=== PATIENT | female | born 1990 | race African-American/Black ===

== ENCOUNTER 2016-04-05 22:51 | Emergency (ER) | payer MEDICAID ==
[~2016-04-05] VITALS: Ht 167.6 cm; Wt 107.0 kg
[~2016-04-05 22:51] MED LIST: IBUPROFEN600 MG ORAL; NORCO 5-325 TA1 EACH ORAL; ROBAXIN-750750 MG PO
[2016-04-05] MEDS ORDERED: CARDIZEM60 MG ORAL (23:05)
[2016-04-05] MEDS ORDERED: LOSARTAN POTASS50 MG ORAL (23:05)
[2016-04-05] MEDS ORDERED: HYDROCHLOROTH12.5 M2 ORAL (23:05)
[2016-04-05 23:21] VITALS: BP 142/89
[2016-04-05] MEDS ORDERED: ZOFRAN4 M3 ORAL (23:33)
--- NOTE | 2016-04-05 23:34 | Emergency Room Report ---
History of Present Illness General Chief Complaint: Chest Pain Source: Patient Present Illness HPI Is a 25-year-old female with no past medical history. She presents with chief complaint of chest pressure and pain. She felt very gassy today. Better after she burped. She had one episode vomiting when she checked in today. Denies any diarrhea but has the urge to go. No fever chills but no diaphoresis. No exertional component. No other complaint. Allergies: Coded Allergies: No Known Allergies (Unverified , 12/04/15) Patient History Past Medical History: see triage record, old chart reviewed Past Surgical History: none Pertinent Family History: none Social History: Denies: smoking Last Menstrual Period: 03/18/16 Now: No Immunizations: other Reviewed Nursing Documentation: PMH: Agreed, PSxH: Agreed Nursing Documentation-PMH Past Medical History: No History, Except For Hx Hypertension: Yes Review of Systems Eye: Denies: blurred vision, eye pain ENT: Denies: ear pain, nose congestion, throat swelling Respiratory: Denies: cough, shortness of breath Cardiovascular: Denies: chest pain, palpitations Gastrointestinal: Reports: nausea, Denies: abdominal pain, diarrhea, vomiting Musculoskeletal: Denies: back pain, joint pain Skin: Denies: rash Neurological: Denies: headache, numbness Endocrine: Denies: increased thirst, increased urine Hematologic/Lymphatic: Denies: easy bruising All Other Systems: negative except mentioned in HPI Physical Exam Vital Signs Date Time Temp Pulse Resp B/P Pulse Ox O2 Delivery O2 Flow Rate FiO2 04/05/16 22:59 98.1 96 16 148/84 98 Room Air vitals normal Sp02 EP Interpretation: reviewed, normal General Appearance: well appearing, no apparent distress, alert Head: normocephalic, atraumatic Eyes: bilateral eye EOMI, bilateral eye PERRL ENT: hearing grossly normal, normal pharynx Neck: full range of motion, supple, no meningismus Respiratory: chest non-tender, lungs clear, normal breath sounds Cardiovascular #1: regular rate, rhythm, no murmur Gastrointestinal: non tender, no mass, no organomegaly, no bruit, non-distended , abnormal bowel sounds - Hyperactive Musculoskeletal: back normal, gait/station normal, normal range of motion Psychiatric: mood/affect normal Skin: warm/dry Medical Decision Making Diagnostic Impression: Primary Impression: Non-cardiac chest pain Additional Impression: Abdominal gas pain ER Course Patient presents with noncardiac chest pain. No evidence of obstruction. Notice of acute abdomen. Most likely secondary to early gastroenteritis. We' ll discharge him with reassurance. EKG Diagnostic Results Rate: normal Rhythm: NSR ST Segments: no acute changes Rhythm Strip Diag. Results EP Interpretation: yes Rate: 90 Rhythm: NSR, no PVC's, no ectopy Last Vital Signs Date Time Temp Pulse Resp B/P Pulse Ox O2 Delivery O2 Flow Rate FiO2 04/05/16 23:21 98.1 88 16 142/89 100 Room Air Status: improved Disposition: HOME, SELF-CARE Condition: Stable Scripts Ondansetron* (ZOFRAN*) 4 Mg Tablet 4 MG ORAL Q6H Y for Nausea & Vomiting, #10 TAB Prov: KEIRA BRIONES M.D. 04/05/16 Patient Instructions: Nonspecific Chest Pain Additional Instructions: Followup with your Dr. in 3-5 days. Return if symptom worsen. KEIRA BRIONES M.D. Apr 05, 2016 23:34
[2016-04-05 23:50] VITALS: BP 142/89
--- NOTE | 2016-04-08 10:07 | Cardiology Report ---
APPROVED REPORT EKG Measurement Heart [id number] Normal sinus rhythm Normal ECG
== END 2016-04-06 00:10 | disposition home or self-care (01) ==
LOC: EMR 23:25
DX: R07.89 Other chest pain (principal); R10.9 Unspecified abdominal pain; I10 Essential (primary) hypertension; R11.10 Vomiting, unspecified
CPT/HCPCS: 93005; 99283

== ENCOUNTER 2017-03-24 12:59 | Emergency (ER) | payer MEDICAID ==
[~2017-03-24] VITALS: Ht 167.6 cm; Wt 104.3 kg
[~2017-03-24 12:59] MED LIST changes: +CARDIZEM60 MG ORAL; +HYDROCHLOROTH12.5 M2 ORAL; +LOSARTAN POTASS50 MG ORAL; +ZOFRAN4 M3 ORAL
[2017-03-24] MEDS ORDERED: Ketorolac 30mg Inj IV ONE (13:30)
[2017-03-24 14:00] LABS: APPEARANCE,URINE CLOUDY; BASOPHILS % (AUTO) 1.4 % (0.0-2.0); BILIRUBIN, URINE NEGATIVE (NEGATIVE); COLOR,URINE PALE YELLOW; EOSINOPHILS % (AUTO) 1.7 % (0.0-3.0); GLUCOSE, URINE (UA) NEGATIVE (NEGATIVE); HEMATOCRIT 42.5 % (37.0-47.0); KETONES,URINE NEGATIVE (NEGATIVE); LEUKOCYTE ESTERASE ,URINE NEGATIVE (NEGATIVE); LYMPHOCYTES % (AUTO) 31.2 % (20.0-45.0); MEAN CORPUSCULAR VOLUME 89 FL (80-99); NEUTROPHILS % (AUTO) 58.7 % (45.0-75.0); NITRITE,URINE NEGATIVE (NEGATIVE); PH,URINE 6 (4.5-8.0); PLATELET COUNT 321 K/UL (150-450); PROTEIN,URINE 2+ (NEGATIVE); RED BLOOD COUNT 4.76 M/UL (4.20-5.40); RED CELL DISTRIBUTION WIDTH 13.1 % (11.6-14.8); UROBILINOGEN,URINE NORMAL MG/DL (0.0-1.0)
[2017-03-24 14:10] LABS: INR 0.9 (0.9-1.1)
[2017-03-24 14:14] LABS: ANION GAP 7 mmol/L (5-15); BLOOD UREA NITROGEN 6 mg/dL (7-18); CALCIUM 9.1 MG/DL (8.5-10.1); CARBON DIOXIDE 27 MMOL/L (21-32); CHLORIDE 105 MMOL/L (98-107); CREATININE 1.1 MG/DL (0.55-1.30); POTASSIUM 3.7 MMOL/L (3.5-5.1); SODIUM 139 MMOL/L (136-145)
[2017-03-24 14:18] LABS: ALANINE AMINOTRANSFERASE 42 U/L (12-78); ALBUMIN 3.4 G/DL (3.4-5.0); ALBUMIN/GLOBULIN RATIO 0.9 (1.0-2.7); ALKALINE PHOSPHATASE 56 U/L (46-116); ASPARTATE AMINO TRANSFERASE 27 U/L (15-37); BILIRUBIN,TOTAL 0.3 MG/DL (0.2-1.0)
--- NOTE | 2017-03-24 14:52 | Emergency Room Report ---
History of Present Illness General Chief Complaint: Complications Source: Patient Present Illness HPI The patient had an abortifacient on Friday. She passed tissue on . He's continued to have bleeding going to double pads every couple of hours. In addition to that she has significant pain in her abdomen. She doesn't feel dizzy when she stands up. She's not sure what her blood type is. She has an 8- year-old child. LNMP 01/20. She's felt feverish but no documented fever. No chills. No dysuria. The pain is suprapubic and crampy pressure. Pain rated 10/10. 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 Last Menstrual Period: 01/20/17 Reviewed Nursing Documentation: PMH: Agreed, PSxH: Agreed Nursing Documentation-PMH Hx Hypertension: Yes - Renal Hypertension Hx Dialysis: No - CKD Review of Systems All Other Systems: negative except mentioned in HPI Physical Exam Vital Signs Date Time Temp Pulse Resp B/P (MAP) Pulse Ox O2 Delivery O2 Flow Rate FiO2 03/24/17 13:06 98.4 0 16 97 Room Air Sp02 EP Interpretation: reviewed, normal General Appearance: well appearing, no apparent distress, GCS 15 Head: normocephalic Eyes: bilateral eye normal inspection, bilateral eye PERRL ENT: moist mucus membranes Neck: supple Respiratory: lungs clear, normal breath sounds Cardiovascular #1: regular rate, rhythm Cardiovascular #2: 2+ radial (R) Gastrointestinal: normal inspection, normal bowel sounds, no mass, non- distended, tenderness Genitourinary: no CVA tenderness, deferred - for ultrasound Musculoskeletal: back normal, gait/station normal, normal range of motion Neurologic: alert, oriented x3, grossly normal Psychiatric: mood/affect normal Skin: normal inspection, warm/dry Medical Decision Making Diagnostic Impression: Primary Impression: Vaginal bleeding Additional Impression: Retained products of conception ER Course Patient presents with suprapubic pain and vaginal bleeding after passing tissue. Differential includes ectopic, retained products, infection, post miscarriage pain. Evaluation would be with labs, including a type and Rh and urinalysis. Also an ultrasound will be performed. The patient will receive IV hydration and analgesia. Blood type O+. H/H good. WBC normal. Discussed with Dr. Graves who recommends repeat dosing of [employer]. States small possibility she will need D and C but believe repeat dose might be successful. Discussed options with patient. No evidence of infection at this time. Improved pain - abd soft. Here 1 pad/hour, minimal clots on U/S probe Patient stable for outpatient observation and treatment. Laboratory Tests Test 03/24/17 13:40 White Blood Count 6.0 K/UL (4.8-10.8) Red Blood Count 4.76 M/UL (4.20-5.40) Hemoglobin 14.0 G/DL (12.0-16.0) Hematocrit 42.5 % (37.0-47.0) Mean Corpuscular Volume 89 FL (80-99) Mean Corpuscular Hemoglobin 29.4 PG (27.0-31.0) Mean Corpuscular Hemoglobin Concent 33.0 G/DL (32.0-36.0) Red Cell Distribution Width 13.1 % (11.6-14.8) Platelet Count 321 K/UL (150-450) Mean Platelet Volume 6.4 FL (6.5-10.1) L Neutrophils (%) (Auto) 58.7 % (45.0-75.0) Lymphocytes (%) (Auto) 31.2 % (20.0-45.0) Monocytes (%) (Auto) 7.0 % (1.0-10.0) Eosinophils (%) (Auto) 1.7 % (0.0-3.0) Basophils (%) (Auto) 1.4 % (0.0-2.0) Prothrombin Time 9.4 SEC (9.30-11.50) Prothrombin Time INR 0.9 (0.9-1.1) PTT 27 SEC (23-33) Urine Color Pale yellow Urine Appearance Cloudy Urine pH 6 (4.5-8.0) Urine Specific [place] 1.020 (1.005-1.035) Urine Protein 2+ (NEGATIVE) H Urine Glucose (UA) Negative (NEGATIVE) Urine Ketones Negative (NEGATIVE) Urine Occult Blood 5+ (NEGATIVE) H Urine Nitrite Negative (NEGATIVE) Urine Bilirubin Negative (NEGATIVE) Urine Urobilinogen Normal MG/DL (0.0-1.0) Urine Leukocyte Esterase Negative (NEGATIVE) Urine RBC 60-80 /HPF (0 - 2) H Urine WBC 0-2 /HPF (0 - 2) Urine Squamous Epithelial Cells Few /LPF (NONE/OCC) Urine Bacteria Occasional /HPF (NONE) Sodium Level 139 MMOL/L (136-145) Potassium Level 3.7 MMOL/L (3.5-5.1) Chloride Level 105 MMOL/L (98-107) Carbon Dioxide Level 27 MMOL/L (21-32) Anion Gap 7 mmol/L (5-15) Blood Urea Nitrogen 6 mg/dL (7-18) L Creatinine 1.1 MG/DL (0.55-1.30) Estimate Glomerular Filtration Rate > 60 mL/min (>60) Glucose Level 91 MG/DL (74-106) Calcium Level 9.1 MG/DL (8.5-10.1) Total Bilirubin 0.3 MG/DL (0.2-1.0) Aspartate Amino Transferase (AST) 27 U/L (15-37) Alanine Aminotransferase (ALT) 42 U/L (12-78) Alkaline Phosphatase 56 U/L (46-116) Total Protein 7.2 G/DL (6.4-8.2) Albumin 3.4 G/DL (3.4-5.0) Globulin 3.8 g/dL Albumin/Globulin Ratio 0.9 (1.0-2.7) L Lipase 112 U/L (73-393) Human Chorionic Gonadotropin, Quant 4177 mIU/mL (1-6) H CT/MRI/US Diagnostic Results CT/MRI/US Diagnostic Results : Imaging Test Ordered: pelvic u/s Impression retained products Last Vital Signs Date Time Temp Pulse Resp B/P (MAP) Pulse Ox O2 Delivery O2 Flow Rate FiO2 03/24/17 15:57 89 19 154/100 99 Room Air 03/24/17 13:06 98.4 Status: improved Scripts Ondansetron Odt* (ZOFRAN ODT*) 4 Mg Tab.rapdis 4 MG ORAL Q8H Y for Nausea & Vomiting, #6 TAB 1 Refill Prov: Tian Whatley M.D. 03/24/17 Hydrocodone Bit/Acetaminophen 5-325* (NORCO 5-325*) 1 Each Tablet 1 TAB ORAL Q6H Y for For Pain, #16 TAB 0 Refills Prov: Tian Whatley M.D. 03/24/17 Misoprostol* (CYTOTEC*) 200 Mcg Tablet 200 MCG PO as directed, #4 TAB allow the 4 tablets to dissolve in your cheeks tonight Prov: Tian Whatley M.D. 03/24/17 Referrals: NON PHYSICIAN (PCP) Tian Whatley M.D. Mar 24, 2017 14:52
--- NOTE | 2017-03-24 15:33 | Diagnostic Imaging Report ---
Indication: Vaginal bleeding with clots, positive test, status post pill 03/19/2016, excessive cramping and bleeding Technique: Present on transvaginal images Comparison: none Findings: The uterus measures 9.7 cm in length by 5.5 cm AP. The endometrium measures 13 mm thick. No intrauterine gestational sac demonstrated. Very slight heterogeneity to the endometrium is demonstrated. Multiple subtle isoattenuating lesions of the anterior myometrium are seen measuring up to 2.6 cm long axis dimension. There is a scar noted. The ovaries are normal in size. That on the left demonstrates what is probably a hemorrhagic corpus luteum. Small amount of free cul-de-sac fluid is demonstrated Impression: No intrauterine demonstrated. Differential considerations include completed , ectopic , less likely (given beta-hCG levels) very early and therefore nonvisualized . Correlate with serial beta hCGs, clinical findings, consider follow-up sonography as indicated Mildly thickened endometrium with heterogeneous echogenicity, nonspecific in appearance. No definite retained products of conception demonstrated Presumed hemorrhagic left ovarian corpus luteum Trace free pelvic fluid, presumably physiologic
[2017-03-24] MEDS ORDERED: MISOPROSTOL200 MCG PO (15:43)
[2017-03-24] MEDS ORDERED: NORCO 5-325 TA1 EACH ORAL (15:43)
[2017-03-24] MEDS ORDERED: ZOFRAN ODT4 MG ORAL (15:43)
[2017-03-24 15:57] VITALS: BP 154/100
== END 2017-03-24 16:01 | disposition home or self-care (01) ==
LOC: EMR 14:15
DX: O03.4 Incomplete spontaneous abortion without complication (principal); I12.9 Hypertensive chronic kidney disease with stage 1 through stage 4 chronic kidney disease, or unspecified chronic kidney disease; N18.9 Chronic kidney disease, unspecified
CPT/HCPCS: 36415; 76801; 80053; 81003; 83690; 84702; 85025; 85610; 85730; 86900; 86901; 96361; 96374; 96375; 99284; J1885; J2405